=== PATIENT | male | born 1960 | race Hispanic/Latino ===

== ENCOUNTER → 2023-08-14 | Outpatient (CLI) | payer MEDICAID ==
[2023-08-14 21:57] VITALS: PULSE 60; RESP 16
[2023-08-14 22:30] VITALS: PULSE 58; RESP 6
[2023-08-14 23:00] VITALS: PULSE 52; RESP 12
[2023-08-14 23:30] VITALS: PULSE 56; RESP 10
[2023-08-15] VITALS (10 sets, daily range): PULSE 48–56; RESP 4–18
== END | disposition home or self-care (01) ==
LOC: SLP 20:00
PROVIDERS: ATTEND Family Medicine
DX: G47.33 Obstructive sleep apnea (adult) (pediatric) (principal)
CPT/HCPCS: 95811